=== PATIENT | female | born 1990 | race African-American/Black ===

== ENCOUNTER 2018-05-14 02:21 | Emergency (ER) | payer MEDICAID ==
[~2018-05-14] VITALS: Ht 167.6 cm; Wt 58.0 kg
[2018-05-14] MEDS ORDERED: MORPHINE SULFATE 10 MG/ML CPJ IM ONE (03:45)
[2018-05-14 05:30] VITALS: BP 116/64
== END 2018-05-14 05:33 | disposition home or self-care (01) ==
LOC: ER 02:21
DX: S49.092A Other physeal fracture of upper end of humerus, left arm, initial encounter for closed fracture (principal); G40.909 Epilepsy, unspecified, not intractable, without status epilepticus; J45.909 Unspecified asthma, uncomplicated; F17.200 Nicotine dependence, unspecified, uncomplicated; F12.10 Cannabis abuse, uncomplicated; X58.XXXA Exposure to other specified factors, initial encounter; Y93.89 Activity, other specified; Y92.143 Cell of prison as the place of occurrence of the external cause
CPT/HCPCS: 29105; 73060; 96372; 99284; J2270; A4565

== ENCOUNTER 2018-05-18 15:25 | Emergency (ER) | payer MEDICAID ==
[~2018-05-18] VITALS: Ht 162.6 cm; Wt 62.5 kg
[2018-05-18 15:31] VITALS: BP 117/76
== END 2018-05-18 19:30 | disposition left against medical advice (07) ==
LOC: ER 15:45
DX: M79.602 Pain in left arm (principal); G40.909 Epilepsy, unspecified, not intractable, without status epilepticus; Z87.81 Personal history of (healed) traumatic fracture
CPT/HCPCS: 99282

== ENCOUNTER 2024-01-29 06:00 | Emergency (ER) | payer MEDICAID ==
[~2024-01-29] VITALS: Ht 167.6 cm; Wt 82.0 kg
[2024-01-29 06:03] VITALS: O2SAT 98
[2024-01-29 06:30] VITALS: BP 130/83; PULSE 120; RESP 18; TEMP 96.9
[2024-01-29 07:46] LABS: BASOPHILS % 0.2 % (0.0-2.0); EOSINOPHILS % 0.5 % (0.0-5.0); HEMATOCRIT. 34.6 % (36.0-48.0); HEMOGLOBIN. 10.9 g/dL (12.0-16.0); LYMPHOCYTES % 22.2 % (20.0-50.0); MEAN CORPUSCULAR HEMOGLOBIN 20.6 pg (28.0-32.0); MEAN CORPUSCULAR HGB CONC 31.4 g/dL (31.0-37.0); MEAN CORPUSCULAR VOLUME 65.6 fL (81.0-99.0); MEAN PLATELET VOLUME 8.9 fl (7.4-10.4); MONOCYTES % 5.1 % (2.0-8.0); PLATELET 305 x1000/uL (130-400); RED BLOOD CELL COUNT 5.28 mill/uL (4.2-5.4); RED CELL DISTRIBUTION WIDTH 19.9 % (11.6-14.6); WHITE BLOOD COUNT 6.5 x1000/uL (4.5-11.0)
[2024-01-29 07:49] LABS: HCG SCREEN NEGATIVE
[2024-01-29 07:51] LABS: ADD RBC MORPHOLOGY YES; DIFFERENTIAL COMMENT 1
[2024-01-29 07:55] LABS: ACETAMINOPHEN < 2 ug/mL (10-30); ALANINE AMINOTRANSFERASE 15 IU/L (10-49); ALBUMIN 5.4 g/dL (3.2-4.8); ASPARTATE AMINOTRANSFERASE 25 IU/L (<34); BILIRUBIN TOTAL 0.6 mg/dL (0.1-1.0); CALCIUM 9.5 mg/dL (8.7-10.4); CARBON DIOXIDE 20 mEq/L (21-32); CHLORIDE 106 mEq/L (98-107); CREATININE 0.8 mg/dL (0.6-1.0); GLUCOSE 62 mg/dL (70-105); POTASSIUM 3.7 mEq/L (3.5-5.1); SODIUM 138 mEq/L (136-145); UREA NITROGEN BLOOD 15 mg/dL (9-23)
[2024-01-29 07:59] LABS: ETHANOL BLOOD < 10 mg/dL (<10); PROTEIN TOTAL 9.3 g/dL (6.0-8.3)
[2024-01-29 10:44] LABS: MICROCYTOSIS 2+
[2024-01-29 10:45] LABS: ANISOCYTOSIS 2+
[2024-01-29 10:46] LABS: PLATELET ESTIMATE NORMAL
== END 2024-01-29 07:00 | disposition left against medical advice (07) ==
LOC: ER 06:00
DX: F19.90 Other psychoactive substance use, unspecified, uncomplicated (principal); Z86.59 Personal history of other mental and behavioral disorders
CPT/HCPCS: 36415; 80053; 80307; 80320; 80329; 84703; 85025; 99283; G0480